=== PATIENT | female | born 1960 | race Caucasian/White ===

== ENCOUNTER → 2021-07-06 | Outpatient (CLI) | payer OTHER ==
[2021-07-06 11:09] LABS: URINE BILIRUBIN NEGATIVE (Negative); URINE BLOOD 1+ (Negative); URINE CLARITY CLEAR; URINE COLOR YELLOW; URINE GLUCOSE-RANDOM* NEGATIVE (Negative); URINE KETONES NEGATIVE (Negative); URINE NITRITE-REFLEX NEGATIVE (Negative); URINE PROTEIN (DIPSTICK) NEGATIVE (Negative); URINE UROBILINOGEN 0.2 E.U./dl (0.2-1.0)
[2021-07-06 11:10] LABS: HEMATOCRIT 39.9 % (37.0-47.0); HEMOGLOBIN 13.7 gm/dL (12.0-15.0); MCH 30.6 pg (26.0-34.0); MCHC 34.5 g/dL (28.0-37.0); MCV 88.8 fL (80.0-100.0); RBC 4.49 mil/uL (4.20-5.00); RDW 13.5 % (10.5-14.5)
[2021-07-06 11:13] LABS: URINE LEUKOCYTES-REFLEX 1+ (Negative)
[2021-07-06 11:19] LABS: ALBUMIN 3.7 g/dL (3.4-5.0); CALCIUM 8.6 mg/dL (8.5-10.1); CREATININE 0.8 mg/dL (0.6-1.0); POTASSIUM 4.2 mmol/L (3.5-5.1)
[2021-07-06 11:22] LABS: INR 0.95; PROTIME 10.4 Seconds (10.5-12.1)
[2021-07-06 11:23] LABS: BACTERIA-REFLEX 1-9 Few /HPF (None Seen); CASTS None Seen /LPF (None Seen); CRYSTALS None Seen /LPF (None Seen); SQUAMOUS 0-3 Few /LPF (0-3); URINE RBC 1-2 Rare /HPF (NONE SEEN); URINE WBC-REFLEX 0-5 Rare /HPF (0-5)
--- NOTE | 2021-07-06 16:11 | EKG ---
[address] [address] ELECTROCARDIOGRAM REPORT Name: KEVIN FRANKLINJOSSIE Law Room #: [facility]#: [id number] Admission: 07/06/21 Attend Phys: Cortez Hensley MD Discharge: Date of : 62 Report #: [id number] [facility] Test Date: 2021-07-06 Test Time: 10:59:12 Pat Name: FROY FRANKLIN Department: Room: Gender: F Production Generalist: KAYA MARY : 1960 Requested By: Cortez Hensley Order Number: [id number] MD: Jose Brantley Measurements Intervals [place] Rate: 62 P: 40 [place]: 143 QRS: 29 QRSD: 94 T: 47 QT: 430 QTc: 437 Interpretive Statements Sinus rhythm No previous ECG available for comparison Electronically Signed On 07-06-2021 16:11:30 CDT by Jose Brantley [email or web address] <ELECTRONICALLY SIGNED> By: Jose Brantley MD, [facility] 07/06/21 1611 1059 1059 Jose Brantley MD, FACC /EPI
== END ==
LOC: PAC 10:34
PROVIDERS: ATTEND Orthopaedic Surgery
DX: M17.12 Unilateral primary osteoarthritis, left knee (principal)

== ENCOUNTER 2021-07-19 08:59 | Observation (INO) | payer OTHER ==
[~2021-07-19] VITALS: Ht 165.1 cm; Wt 83.5 kg
[2021-07-19 10:04] VITALS: BP 137/69
--- NOTE | 2021-07-19 17:30 | NUR ---
Pt came to room 439 from surgery. pt is A &O x4. Pt is room air. pt is room air. Pt VS stable. Pt has dressing to L knee in place. pt is nausous and received medications. pt is able to make needs known.
[2021-07-19 19:35] VITALS: BP 118/65
--- NOTE | 2021-07-20 02:55 | NUR ---
ASSUMED CARE OF PT @1900. PT ASSESSED AT START OF SHIFT. A&OX4. IV INTACT AND FLUIDS INFUSING. SCOPOLAMINE MATCH IN PLACE. PT C/O OF NAUSEA STATED FELT BETTER AFTER EMESIS. LEFT KNEE PIC DRESSING INTACT. SCD'S POLAR PACK AND TEDHOSE IN PLACE. WILL CONT TO MONITOR TILL EOS.
[2021-07-20 04:16] VITALS: BP 106/59
[2021-07-20 08:24] VITALS: BP 105/57
[2021-07-20 11:59] VITALS: BP 105/57
--- NOTE | 2021-07-20 11:59 | NUR ---
Case opened to follow for dc planning. CM role introduced to pt at bedside. She is a&ox4 and indicates that she was working fulltime and indep prior to admission. Her sister Ines is in town and will be staying with her when she goes home. She also has another sister Yoselyn who lives locally and can assist as needed. She does have a FWW for home use and has her outpt therapy appt setup for this . No cm interventions indicated at this time. DC to home with outpt f/u anticipated.
--- NOTE | 2021-07-20 14:00 | NUR ---
Pt receiced discharge orders to home. pt uses walker for mobility. pt worked with PT/OT this shift. pt VS stable. pt received medications as ordered. Pt discharge instructions reviewed with pt and pt verbalizes understanding and signed instructions. pt wheeled to front enterence in wheel chair with personal belongings and left hospital without incident in private vehicle.
--- NOTE | 2021-07-21 13:42 | O ---
[facility] [place] [address] OPERATIVE REPORT Name: FROY FRANKLIN Room #: 439-P [facility] Maame Bledsoe#: [id number] Admission: 07/19/21 Attend Phys: Cortez Hensley MD Discharge: 07/20/21 Date of : 62 Report #: [id number] THIS REPORT FOR: cc: Jey Calvillo Kent DO Abraham,Cortez Cooper MD ~ DATE OF SERVICE: 07/19/2021 PREOPERATIVE DIAGNOSIS: Left knee osteoarthritis. POSTOPERATIVE DIAGNOSIS: Left knee osteoarthritis. PROCEDURE: Left total knee arthroplasty using NAVIO robotic assistance. SURGEON: Cortez Hensley MD COLOR DIPPER: Hellen Mejia PA-C INDICATION FOR COLOR DIPPER: Throughout the case, extensive retraction and manipulation of the knee was required. This is supported by my automotive parts counter assistant. ANESTHESIA: LMA with adductor canal block. IMPLANTS: A [employer] size 5 Journey II BCS Oxinium femur, size 3 tibia, size 10 constrained polyethylene and a size 29 patella. TOURNIQUET TIME: 50 minutes. ESTIMATED BLOOD LOSS: 25 mL. COMPLICATIONS: None. SPECIMENS: None. CONDITION UPON LEAVING THE OR: Stable. INDICATIONS FOR PROCEDURE: The patient is a 61-year-old female with left knee osteoarthritis. She had failed conservative measures for this and after discussion with her, she elected for left total knee arthroplasty. DESCRIPTION OF PROCEDURE: Risks, benefits, alternatives, complications were discussed in detail with the patient including but not limited to risk of anesthesia, risk of damage to nerves, arteries, blood vessels, risk for infection, bleeding, risk for continued knee pain and need for reoperation. Informed consent was obtained from the patient. Left knee was appropriately marked in the preoperative holding area. IV Ancef was given for preoperative [address] [address] OPERATIVE REPORT Name: FROY FRANKLIN Room #: 439-P [facility] Maame Bledsoe#: [id number] Admission: 07/19/21 Attend Phys: Cortez Hensley MD Discharge: 07/20/21 Date of : 62 Report #: [id number] antibiotics. Adductor canal block was placed by Anesthesia. She was brought to the operating room and placed in supine position on the operating room table. LMA anesthesia was induced without complication. Tourniquet was placed on the left thigh. Left lower extremity was prepped and draped in normal sterile fashion. Timeout was performed properly identifying the patient and procedure as well as the instrumentation and the implants. All in the operating room were in agreement. Left lower extremity was exsanguinated, tourniquet was inflated. Tourniquet time was 50 minutes. Standard midline approach to the knee was made with 10 blade through the skin. Dissection was taken down sharply to the fascia and deep flaps were developed medially and laterally. Fresh 10 blade was used to make a medial parapatellar arthrotomy and the knee was inspected. There was severe medial compartment osteoarthritis with moderate lateral and patellofemoral compartment osteoarthritis. ACL and PCL were removed sharply. Reference pins were placed in the femur and the tibia. The knee was digitally mapped using [employer] robotic system. Intraoperative plan was made. We sized to size 5 femur, size 3 tibia and a 10 spacer. After acceptance of the intraoperative plan, the distal femoral cut was made with NAVIO bur. Distal femoral cutting block was pinned in place and chamfer cuts were made. Attention was turned to the tibia. Remainder of the menisci were removed with Bovie cautery. Tibial resection guide was pinned in place using NAVIO for placement and tibial resection was made. Flexion and extension gaps were checked and found to have good balance in flexion and extension both medially and laterally. Tibia was sized, found to be a size 3. Size 3 tibial trial was placed, pinned and punched. A size 5 femoral trial was placed and box cut was made. This was then trialed with a size 10 polyethylene and size 10 polyethylene demonstrated 1 mm laxity medially and laterally throughout range of motion of the knee; however, in deep flexion, she did open up to about 3 mm laterally. It was felt we can make up for this with a constrained implant, 9 mm of bone was resected from the posterior surface of the patella and a size 29 patellar trial button was placed. The knee was taken through range of motion and found to be stable, found to have good patellar tracking. Trial components were removed. Bone ends were thoroughly irrigated with normal saline. A final size 3 tibia, size 5 Journey II BCS Oxinium femur and a size 29 patella were cemented in place using standard cementation techniques. While the cement cured, a periarticular injection consisting of morphine, ropivacaine, epinephrine, Toradol was placed around the knee joint capsule. After the cement cured, tourniquet was deflated. Hemostasis was obtained with Bovie cautery. Final size 10 constrained polyethylene was placed. A gram of vancomycin was placed deep in the joint. Fascia was closed with 0 Vicryl. Skin was closed with 2-0 Vicryl and 3-0 Monocryl. Dermabond and a SAIDA dressing was applied. The patient tolerated [address] [address] OPERATIVE REPORT Name: FROY FRANKLIN Room #: 439-P [facility] Maame Bledsoe#: [id number] Admission: 07/19/21 Attend Phys: Cortez Hensley MD Discharge: 07/20/21 Date of : 62 Report #: [id number] this procedure well and went to recovery room under care of Anesthesia postoperatively. <ELECTRONICALLY SIGNED> By: Cortez Hensley MD 07/21/21 1342 1449 1543 Cortez Hensley MD /nt
== END 2021-07-20 14:40 | disposition home or self-care (01) ==
LOC: OR 08:59 → 4S 15:59 → OR 16:00 → 4S 07-20 14:40
PROVIDERS: ADMIT Orthopaedic Surgery; ATTEND Orthopaedic Surgery
DX: M17.12 Unilateral primary osteoarthritis, left knee (principal); Z20.822 Contact with and (suspected) exposure to COVID-19; Z79.899 Other long term (current) drug therapy
CPT/HCPCS: 10102; 50010; 50101; 50415; 50954; 51130; 51225; 53000; 53078; 53365; 54118; 56527; 56528; 57095; 57103; 57110; 57127; 57180; 59024; 62110; 62900; 64043; 65060; 70005